=== PATIENT | male | born 1970 | race Caucasian/White ===

== ENCOUNTER 2016-03-21 23:29 | Emergency (ER) | payer SELFPAY ==
[2016-03-21] MEDS ORDERED: Tetracaine 0.5% OPHTH SOLN/PF 4 ML BOT ONE (23:57)
[2016-03-22] MEDS ORDERED: HYDROcodone/Acetaminophen 5/325 mg Tablet ONE
[2016-03-22] MEDS ORDERED: Gentamicin Ophth Ointment 0.3% 3.5 gm Tube ONE (00:14)
--- NOTE | 2016-03-22 00:36 | PICIS ---
[facility] EMERGENCY RECORD TRIAGE (23:38 AGAN) PATIENT: NAME: Chris Whyte, AGE: 45, GENDER: male, : Fri1970, TIME OF GREET: FriMar 21, 2016 23:30, PREFERRED LANGUAGE: Chinese, ETHNICITY: Not or , FALL RISK: NO, ECODE BILLING MAP: [facility] ER, SSN: [id number], Zip Code: [address], KG WEIGHT: 71.67, PHONE: CELL, , , PERSON ID: [id number], PCP: NONE. (23:38 AGAN) TRIAGE NOTES: Rt eye pain. feels like there are sands when I close it. I was chipping some ceramic tiles at home around 4: 30 pm. I went to sleep around 8 pm and it started hurting at that time. washed it with some normal saline but it did not go away. Vision not affected. (23:38 AGAN) COMPLAINT: RIGHT EYE PAIN. (23:38 AGAN) ADMISSION: URGENCY: 4 Non Urgent, ADMISSION SOURCE: Home, TRANSPORT: CAR, BED: ED -05. (23:38 AGAN) ASSESSMENT: Assessment: Pleasant, cooperative c/o pain to his rt eye, Symptoms began 1 hour ago, Visual acuity performed, denies any visual disturbances. 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 (FriMar 22, 2016 00:54 AGAN) PROVIDERS: TRIAGE NURSE: Aidan Downey RN. (23:38 AGAN) VITAL SIGNS: BP 155/88, Pulse 92, Resp 20, Temp 97.7, (Tympanic), Pain 7, (Constant), O2 Sat 98%, Time 03/21/2016 23:34. (23:34 AGAN) PREVIOUS VISIT ALLERGIES: No Known Allergies. (23:38 AGAN) No Known Allergies. (FriMar 22, 2016 00:54 AGAN) KNOWN ALLERGIES NKDA No Known Allergies (Unconfirmed) CURRENT MEDICATIONS (23:39 AGAN) Ventolin: AEROSOL (GRAM) : Strength - 90 mcg : INHALATION Patient Dose: every 8 hours PRN. VITAL SIGNS VITAL SIGNS: BP: 155/88, Pulse: 92, Resp: 20, Temp: 97.7 (Tympanic), Pain: 7 (Constant), O2 sat: 98%, Time: 03/21/2016 23:34. (23:34 AGAN) BP: 142/78, Pulse: 88, Resp: 20, Temp: 98.0, Pain: 5, O2 sat: 100% on RA, Time: 03/22/2016 00:15. (FriMar 22, 2016 00:15 AGAN) NURSING ASSESSMENT: EYE (23:38 AGAN) CONSTITUTIONAL: Complex assessment performed, Patient arrives ambulatory, Gait steady, History obtained from patient, Patient appears, uncomfortable, Patient cooperative, Patient alert, Oriented to person, place and time, Skin warm, Skin dry, Skin normal in color, Mucous membranes pink, Mucous membranes moist, Patient is &a-1R&a+25V*p+0X*n7695O*c202B*c15G*c2P*p-0X&a-25V&a+1R Name: Chris Whyte : 1970 M45 MedRec: [id number] AcctNum: [id number] Prepared: FriMar 22, 2016 05:40 by Interface Page 1 of 7 pMD [facility] EMERGENCY RECORD well-groomed, Patient complains of pain rt eye, He was chipping some ceramic tiles at home earlier during the day. 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 [place] like there are sands in his eye. Washed it with some saline but did not help. PAIN: tearing pain, Right eye, constant, on a scale 0-10 patient rates pain as 8, Pain exacerbated by nothing, Pain relieved by, Aspirin, not effective. EYES: Eye assessment findings include orbits normal, Eye lids normal, Conjunctiva, irritated, Sclera normal, Cornea, speck of FB visible, Iris normal, Pupils equally round and reactive to light, Associated with tearing, to the right eye, no associated visual changes, Visual acuity performed, denies any visual disturbances. NURSING PROCEDURE: DISCHARGE NOTE (FriMar 22, 2016 00:25 AGAN) DISCHARGE: Patient discharged to home, ambulating without assistance, family driving, accompanied by //partner, Summary of Care printed/ provided, Patient requested and was provided an electronic copy of Discharge Instructions, Transition record given to patient, Discharge instructions given to patient, Prescriptions given and instructions on side effects given, Name of prescription(s) given: Gentak, Tylenol # 3, Above person(s) verbalized understanding of discharge instructions and follow-up care, Patient discharged by, Dr. Rivera, Patient instructed not to drive home, Patient treated and evaluated by physician, Notes: Spouse is driving him home. BELONGINGS: Belongings remain with patient, Valuables remain with patient. NURSING PROCEDURE: EYE CARE (FriMar 22, 2016 00:15 AGAN) PATIENT IDENTIFIER: Patient actively involved in identification process, Patient's identity verified by patient stating name, Patient's identity verified by patient stating date, Patient's identity verified by hospital ID bracelet. EYE CARE: Eye care indicated for foreign body, Dr. Rivera, Foreign body removal performed, to the right eye, by Dr. Rivera. FOLLOW-UP: After procedure, visual acuity, denies any changes, After procedure, eye patch applied to the right eye, After procedure, patient rates pain as 5 out of 10, Notes: Very cooperative with procedure. NOTES: Patient tolerated procedure well. SAFETY: Side rails up, Cart/Stretcher in lowest position, Family at bedside, Call light within reach, Hospital ID band on, Notes: Family members in ED. VITAL SIGNS: BP: 142, / 78, Pulse: 88, Resp: 20, Temp: 98.0, Pain: 5, O2 sat: 100%, on: RA. NURSING PROCEDURE: NURSE NOTES (23:45 AGAN) &a-1R&a+25V*p+0X*i5109T*c202B*c15G*c2P*p-0X&a-25V&a+1R Name: Chris Whyte Anusha : 1970 M45 MedRec: [id number] AcctNum: [id number] Prepared: FriMar 22, 2016 05:40 by Interface Page 2 of 7 pMD [facility] EMERGENCY RECORD NURSES NOTES: Patient in no apparent distress, Pillow given to patient, Patient examined by physician. ORDER DETAILS Order Name: patch right eye, Status: Done, Time: 00:30 03/22/2016, User: GENNA, - Ordered for: MD Rivera Stanley, - Entered by: MD Rivera Stanley - FriMar 22, 2016 00:12, - Quantity: 1. MEDICATION ADMINISTRATION SUMMARY Drug Name: Gentak, Dose Ordered: 2 gtt, Route: Eye Right, Status: Canceled, Time: 00:40 03/22/2016, Drug Name: Gentak, Dose Ordered: 1 chaparro, Route: Eye Right, Status: Given, Time: 00:20 03/22/2016, Drug Name: *tetracaine opthalmic solution, Dose Ordered: * , Route: Eye Right, Status: Given, Time: 00:07 03/22/2016, Drug Name: *Millbrook, Dose Ordered: 1 tab(s), Route: Oral, Status: Given, Time: 00:02 03/22/2016, *Additional information available in notes, Detailed record available in Medication Service section. MEDICATION SERVICE Gentak: Order: Gentak (gentamicin sulfate) - Dose: 2 gtt : Eye Right Schedule: Now Ordered by: Ronaldo Rivera MD Entered by: Ronaldo Rivera MD FriMar 22, 2016 00:12 , Acknowledged by: Aidan Downey RN FriMar 22, 2016 00:16. (CANCELED) Gentak: Originally ordered FriMar 22, 2016 00:12 Cancel reason: Change in medication plan. (FriMar 22, 2016 00:40 AGAN) Gentak: Order: Gentak (gentamicin sulfate) - Dose: 1 chaparro : Eye Right Schedule: Now Ordered by: Ronaldo Rivera MD Entered by: Aidan Downey RN FriMar 22, 2016 00:43 , Acknowledged by: Aidan Downey RN FriMar 22, 2016 00:43 Documented as given by: Aidan Downey RN FriMar 22, 2016 00:20 Patient, Medication, Dose, Route and Time verified prior to administration. Amount given: 1 chaparro, Site: Medication administered on the right side, Correct patient, time, route, dose and medication confirmed prior to administration, Patient advised of actions and side-effects prior to administration, Allergies confirmed and medications reviewed prior to administration, Patient tolerated procedure well, Advised not to ambulate without assistance, Patient in position of comfort, Side rails up, Cart in lowest position, Family at bedside. : Follow Up : Response assessment performed, No signs or &a-1R&a+25V*p+0X*y7781P*c202B*c15G*c2P*p-0X&a-25V&a+1R Name: Chris Whyte : 1970 M45 MedRec: [id number] AcctNum: [id number] Prepared: FriMar 22, 2016 05:40 by Interface Page 3 of 7 pMD [facility] EMERGENCY RECORD symptoms of allergic reaction noted. (FriMar 22, 2016 00:25 AGAN) Millbrook: Order: Millbrook (hydrocodone bitartrate/acetaminophen) - Dose: 1 tab(s) : Oral Schedule: Now Notes: 5/325 Millbrook po once Ordered by: Ronaldo Rivera MD Entered by: Ronaldo Rivera MD [facility] Mar 21, 2016 23:58 , Acknowledged by: Aidan Downey RN [facility] Mar 21, 2016 23:59 Documented as given by: Aidan Downey RN FriMar 22, 2016 00:02 Patient, Medication, Dose, Route and Time verified prior to administration. Amount given: 1 tab, Site: Medication administered P.O., Correct patient, time, route, dose and medication confirmed prior to administration, Patient advised of actions and side-effects prior to administration, Allergies confirmed and medications reviewed prior to administration, Patient tolerated procedure well, Patient in position of comfort, Side rails up, Cart in lowest position, Family at bedside. : Follow Up : Response assessment performed, No signs or symptoms of allergic reaction noted, AAOx4 remains pleasant and very cooperative. (FriMar 22, 2016 00:15 AGAN) tetracaine opthalmic solution: Free Text order: tetracaine opthalmic solution : at bedside with fluorescein strips : Eye Right Ordered by: Ronaldo Rivera MD Entered by: Ronaldo Rivera MD [facility] Mar 21, 2016 23:52 , Acknowledged by: Aidan Downey RN [facility] Mar 21, 2016 23:59 Documented as given by: Aidan Downey RN FriMar 22, 2016 00:07 Patient, Medication, Dose, Route and Time verified prior to administration. Amount given: 2 gtts, Site: Medication administered on the right side, Correct patient, time, route, dose and medication confirmed prior to administration, Patient advised of actions and side-effects prior to administration, Allergies confirmed and medications reviewed prior to administration, Patient tolerated procedure well, Advised not to ambulate without assistance, Patient in position of comfort, Side rails up, Cart in lowest position, Med instilled by Dr. Rivera. : Follow Up : Response assessment performed, No signs or symptoms of allergic reaction noted, Patient in position of comfort, MD in the room to search and remove FB to rt eye if any. (FriMar 22, 2016 00:15 AGAN) HPI EYE COMPLAINT (23:53 SHAN) CHIEF COMPLAINT: Patient presents for evaluation of pain, to the right eye. HISTORIAN: History provided by patient, felt something get in his right eye while working with tile about 5:00 pm; pain started later and worsened. MECHANISM OF INJURY: tile piece; was cutting tile. TIME COURSE: Sudden onset of symptoms. RELIEVED BY: Patient's condition relieved by nothing. &a-1R&a+25V*p+0X*t7474I*c202B*c15G*c2P*p-0X&a-25V&a+1R Name: Chris Whyte : 1970 M45 MedRec: [id number] AcctNum: [id number] Prepared: FriMar 22, 2016 05:40 by Interface Page 4 of 7 pMD [facility] EMERGENCY RECORD ROS (23:55 SHAN) CONSTITUTIONAL: Negative constitutional review of systems, Historian denies chills, denies fever. EYES: right eye pain. ENT: Negative ears, nose, throat review of systems. CARDIOVASCULAR: Negative cardiovascular review of systems, Historian denies chest pain, denies palpitations. RESPIRATORY: Negative respiratory review of systems, Historian denies cough, denies shortness of breath. GI: Negative gastrointestinal review of systems, Historian denies abdominal pain, denies constipation, denies diarrhea. MUSCULOSKELETAL: Negative musculoskeletal review of systems. SKIN: Negative skin review of systems. NEUROLOGIC: Negative neurologic review of systems. ENDOCRINE: Negative endocrine review of systems. HEMO/LYMPHATIC: Normal hematologic/lymphatic system review. PSYCHIATRIC: Negative psychiatric review of systems. NOTES: All other ROS is negative except as listed in HPI. PAST MEDICAL HISTORY MEDICAL HISTORY: Notes: TESTICULAR CA 2015, Flu vaccine not up to date, Tetanus immunization up to date, Pneumococcal vaccine not up to date, Flu vaccine not up to date, Tetanus not up to date, Pneumococcal vaccine not up to date, asthma, testicular cancer. VERIFIED 12/11/15.No changes as of 03.22.16. (FriMar 22, 2016 00:54 AGAN) MALE SURGICAL HISTORY: lt testicle removed...no changes as of 03/22/16. (FriMar 22, 2016 00:54 AGAN) PSYCHIATRIC HISTORY: denies any. (FriMar 22, 2016 00:54 AGAN) SOCIAL HISTORY: Patient denies alcohol use, Patient denies drug use, Patient currently uses tobacco, smokes cigarettes, daily, Patient smokes 1 pack per day. (FriMar 22, 2016 00:54 AGAN) FAMILY HISTORY: Family history is non-contributory to this case. (FriMar 22, 2016 00:54 AGAN) NOTES: I have reviewed and agree with the PMH/PSxH/FamHx/SocHx obtained by the nurse. (23:55 SHAN) PHYSICAL EXAM (23:55 SHAN) CONSTITUTIONAL: Vital signs reviewed, Patient appears non toxic, Patient alert and oriented to person, place and time, Pt is in no apparent distress. HEAD: Head exam included findings of head atraumatic, normocephalic. EYES: Eye exam included findings of eyelids normal to inspection, Pupils equally round and reactive to light, Extraocular muscles intact. Small left medial corneal foreign body seen. &a-1R&a+25V*p+0X*k5918S*c202B*c15G*c2P*p-0X&a-25V&a+1R Name: Chris Whyte : 1970 M45 MedRec: [id number] AcctNum: [id number] Prepared: FriMar 22, 2016 05:40 by Interface Page 5 of 7 pMD [facility] EMERGENCY RECORD ENT: ENT exam normal, Nose exam normal, no nasal deformity, no bleeding from nares, Pharynx exam normal, Mouth exam normal, mucous membranes moist. NECK: Neck exam included findings of normal range of motion, Trachea midline. RESPIRATORY CHEST: Respiratory and chest exam normal, Breath sounds clear, No wheezing, No rales, Chest exam included findings of chest movement symmetrical, Chest expansion equal. CARDIOVASCULAR: Cardiovascular assessment normal, Cardiovascular exam included findings of heart rate regular rate and rhythm, Heart sounds normal. ABDOMEN MALE: Abdominal exam included findings of abdomen nontender, Bowel sounds normal, no mass, no pulsatile masses, no peritoneal signs, no rigidity, no guarding, no rebound. BACK: Back exam included findings of normal inspection, range of motion normal, no costovertebral angle tenderness. UPPER EXTREMITY: Upper extremity exam included findings of inspection normal, Range of motion normal. LOWER EXTREMITY: Lower extremity exam included findings of inspection normal, Range of motion normal. NEURO: Neuro exam findings include patient oriented to person, place and time, Speech normal, no focal motor deficits, no focal sensory deficits. SKIN: Skin exam included findings of skin warm, dry, and normal in color. LYMPHATIC: Lymphatic exam normal. PSYCHIATRIC: Psychiatric exam included findings of patient oriented to person place and time, Normal affect. EVENTS TRANSFER: Triage to Emergency Main ED -05. (FriMar 21, 2016 23:38 AGAN) Removed from Emergency Main ED -05. (FriMar 22, 2016 00:55 AGAN) DOCTOR NOTES TEXT: [place] something go into his right eye while working with tile about 5:00 pm today; has gradually hurt more. (23:56 SHAN) With fluorescein, spot on left medial cornea noted; anesthetized with tetracaine and used a q-tip to remove a small object. what appears to be a rust spot deeper. (FriMar 22, 2016 00:08 SHAN) PROBLEM LIST No recorded problems DIAGNOSIS (FriMar 22, 2016 00:15 SHAN) FINAL: PRIMARY: right corneal foreign body, removed, ADDITIONAL: residual corneal rust ring. DISPOSITION &a-1R&a+25V*p+0X*u8065I*c202B*c15G*c2P*p-0X&a-25V&a+1R Name: Chris Whyte : 1970 M45 MedRec: [id number] AcctNum: [id number] Prepared: FriMar 22, 2016 05:40 by Interface Page 6 of 7 pMD [facility] EMERGENCY RECORD PATIENT: Disposition Type: Discharge, Disposition: *Discharge Home. (FriMar 22, 2016 00:15 SHAN) Patient left the department. (FriMar 22, 2016 00:55 AGAN) INSTRUCTION (FriMar 22, 2016 00:17 SHAN) DISCHARGE: CORNEAL FOREIGN BODY, REMOVED. SPECIAL: 1. place the drops in the right eye and patch it (patch is more for comfort) 2. see an opthamologist soon---some apparent 'rust ring' remaining; possibly a small piece of the foreign object that was removed 3. pain pill sparingly. PRESCRIPTION Tylenol-Codeine #3: TABLET : 300 mg-30 mg : ORAL : Quantity: 1 Unit: tab(s) Route: ORAL Schedule: every 4 hours prn Dispense: 12 Unit: tab(s) May substitute. Refills: No Refills . (FriMar 22, 2016 00:13 SHAN) NOTES: No Refills. (FriMar 22, 2016 00:13 SHAN) Gentak: DROPS : 0.3 % : OPHTHALMIC : Quantity: 2 Unit: gtt Route: OPHTHALMIC Schedule: 4 times a day Dispense: 1 Unit: units May substitute. Refills: No Refills . (FriMar 22, 2016 00:14 SHAN) NOTES: No Refills. (FriMar 22, 2016 00:14 MAXIMINO) IMAGING (FriMar 22, 2016 01:33 AGAN) *DISCHARGE INSTRUCTIONS RECEIPT: Image captured from scanner. *SUPPLY CHARGE SHEET: Image captured from scanner. ADMIN DIGITAL SIGNATURE: MD Rivera Stanley. (FriMar 22, 2016 00:18 MAXIMINO) MD Rivera Stanley. (FriMar 22, 2016 05:29 MAXIMINO) Dimas: GENNA=JERALD Downey, Aidan STANTON=MD Rivera Stanley &a-1R&a+25V*p+0X*q4169L*c202B*c15G*c2P*p-0X&a-25V&a+1R Name: Pato Chris W : 1970 M45 MedRec: [id number] AcctNum: [id number] Prepared: FriMar 22, 2016 05:40 by Interface Page 7 of 7 pMD [facility]
== END 2016-03-22 00:25 | disposition home or self-care (01) ==
LOC: MADERS 23:29
DX: T15.01XA Foreign body in cornea, right eye, initial encounter (principal); F17.210 Nicotine dependence, cigarettes, uncomplicated; J45.909 Unspecified asthma, uncomplicated
CPT/HCPCS: 65220

== ENCOUNTER 2016-04-22 17:28 | Emergency (ER) | payer SELFPAY | END 2016-04-22 18:13 | disposition home or self-care (01) | LOC: MADERS 17:28 | DX: S20.212A Contusion of left front wall of thorax, initial encounter (principal); F17.210 Nicotine dependence, cigarettes, uncomplicated; X58.XXXA Exposure to other specified factors, initial encounter | CPT/HCPCS: 99284 ==

== ENCOUNTER 2016-08-04 16:49 | Emergency (ER) | payer SELFPAY ==
[~2016-08-04 16:49] MED LIST: Triple Antibiotic Oint 1 GM Packet ONE
[2016-08-04] MEDS ORDERED: Adacel (T-DAP) 0.5 ML VIAL ONE (17:03)
== END 2016-08-04 17:20 | disposition home or self-care (01) ==
LOC: MADERS 16:49
DX: S61.512A Laceration without foreign body of left wrist, initial encounter (principal); Z23 Encounter for immunization; J45.909 Unspecified asthma, uncomplicated; F17.210 Nicotine dependence, cigarettes, uncomplicated; W29.3XXA Contact with powered garden and outdoor hand tools and machinery, initial encounter; Y92.009 Unspecified place in unspecified non-institutional (private) residence as the place of occurrence of the external cause
CPT/HCPCS: 90471; 90715

== ENCOUNTER 2017-02-14 17:12 | Emergency (ER) | payer SELFPAY ==
[2017-02-14] MEDS ORDERED: Oseltamivir 75 MG CAP ONE (20:52)
== END 2017-02-14 21:07 | disposition home or self-care (01) ==
LOC: MADERS 17:12
DX: J10.1 Influenza due to other identified influenza virus with other respiratory manifestations (principal); J45.909 Unspecified asthma, uncomplicated; F17.210 Nicotine dependence, cigarettes, uncomplicated
CPT/HCPCS: 87804; 99283

== ENCOUNTER 2017-09-17 11:03 | Emergency (ER) | payer BC, SELFPAY ==
[2017-09-17] MEDS ORDERED: Ketorolac Tromethamine 60 MG/2 ML VIAL ONE (11:28)
[2017-09-17] MEDS ORDERED: Acetaminophen 500 MG TAB ONE ×2 (11:28→11:30)
== END 2017-09-17 11:35 | disposition home or self-care (01) ==
LOC: MADERS 11:03
DX: M79.1 Myalgia (principal); J45.909 Unspecified asthma, uncomplicated; F17.210 Nicotine dependence, cigarettes, uncomplicated; Z85.47 Personal history of malignant neoplasm of testis
CPT/HCPCS: 96372; J1885

== ENCOUNTER 2020-09-07 12:24 | Emergency (ER) | payer BC ==
[2020-09-07 12:52] LABS: Bilirubin Negative (Negative); Blood, Urine Negative (Negative); Clarity Clear (Clear); Glucose, Urine (Dipstick) Negative (Negative); Ketone, Urine Negative (Negative); Leukocyte Negative (Negative); Nitrite Negative (Negative); Protein, Urine (Dipstick) Negative (Neg-Trace); Urobilinogen 0.2 mg/dL (Less than 2)
[2020-09-07] MEDS ORDERED: Cyclobenzaprine 10 MG TAB ONE (13:08)
== END 2020-09-07 13:19 | disposition home or self-care (01) ==
LOC: MADERS 12:24
DX: M62.830 Muscle spasm of back (principal); F17.210 Nicotine dependence, cigarettes, uncomplicated
CPT/HCPCS: 81003; 99283

== ENCOUNTER 2022-09-11 09:36 | Outpatient (CLI) | payer BC | END 2022-09-11 09:37 | disposition home or self-care (01) | LOC: MADLAB 09:36 | PROVIDERS: ATTEND Registered Nurse | DX: J16.8 Pneumonia due to other specified infectious organisms (principal) | CPT/HCPCS: 71046 ==